=== PATIENT | female | born 1995 | race Two or more races ===

== ENCOUNTER 2024-04-18 08:12 | Emergency (ER) | payer MEDICAID, OTHER ==
[~2024-04-18] VITALS: Ht 149.9 cm; Wt 62.4 kg
[2024-04-18 10:18] VITALS: BP 94/62; PULSE 61; RESP 20; TEMP 98.2; O2SAT 97
== END 2024-04-18 10:22 | disposition home or self-care (01) ==
LOC: ER 08:12
DX: T81.31XD Disruption of external operation (surgical) wound, not elsewhere classified, subsequent encounter (principal); Z98.890 Other specified postprocedural states; Y92.89 Other specified places as the place of occurrence of the external cause